=== PATIENT | male | born 1985 | race Caucasian/White ===

== ENCOUNTER 2016-08-31 12:21 | Emergency (ER) | payer OTHER ==
--- NOTE | 2016-08-31 12:57 | ED ---
General Adult HPI - General Chief complaint: Fever Stated complaint: fever Time Seen by Provider: 08/31/16 12:44 Source: patient Mode of arrival: ambulatory Limitations: no limitations - History of Present Illness Initial comments: This 30-year-old white male presents with the complaint of having a cough for the past 4 days as well as a fever for the past 2 days. He has had significant nasal congestion. He denies any production. He has had some diffuse myalgias. He has tried some antihistamine medication without relief. He also has tried some DayQuil. He does relate that he had a root canal done approximately 3 days ago and denies complications with this. He was on antibiotics this past week prior to the root canal but none recently. He has tried some Motrin at times. He states that his fever is up to 103 at worst. He complains of some fatigue. No other complaints or modifying factors. He was seen at an urgent care previously today and sent here for further evaluation. - Related Data Home Medications Medication Instructions Recorded Confirmed Dextroamphetamine/Amphetamine 15 - 30 mg PO DAILY 08/31/16 08/31/16 [Adderall] HYDROcodone/APAP 5-325MG [[place] 1 tab PO DAILY PRN 08/31/16 08/31/16 5-325] Ibuprofen [Motrin] 800 mg PO Q6H PRN 08/31/16 08/31/16 Previous Rx's Medication Instructions Recorded Albuterol Sulfate [Proair Hfa] 1 - 2 puff INHALATION Q6HR PRN #1 08/31/16 inhaler Amoxic-Pot Clav 875-125Mg 1 each PO Q12HR #20 tablet 08/31/16 [Augmentin Xr 875-125] Allergies Allergy/AdvReac Type Severity Reaction Status Date / Time No Known Allergies Allergy Verified 08/31/16 12:45 Review of Systems ROS Statement: Those systems with pertinent positive or pertinent negative responses have been documented in the HPI. ROS Other: All systems not noted in ROS Statement are negative. Past Medical History Past Medical History: No Reported History History of Any Multi-Drug Resistant Organisms: None Reported Additional Past Surgical History / Comment(s): right hand Past Psychological History: ADD/ADHD Smoking Status: Current some day smoker Past Alcohol Use History: Occasional Past Drug Use History: None Reported General Exam - General Exam Comments Initial Comments: GENERAL: The patient is well nourished and well hydrated. VITAL SIGNS: Heart rate, blood pressure, respiratory rate reviewed as recorded in nurse's notes. EYES: Pupils are round and reactive. Extraocular movements are intact. No conjunctival / lid redness or swelling. ENT: No external evidence of injury, swelling, or ecchymosis. Airway is patent. Throat is clear. There is moderate nasal congestion noted. There is some fluid behind the right eardrum. The left ear is occluded with wax. NECK: Nontender. No swelling or evidence of injury. No subcutaneous emphysema. Trachea is midline. No thyroid mass. HEART: Regular rate and rhythm. Good peripheral pulses. LUNGS/CHEST: Breath sounds clear and equal bilaterally. No rales, rhonchi, or wheezes. No ecchymosis, subcutaneous emphysema, or tenderness. ABDOMEN: Abdomen soft without tenderness. No palpable masses or organomegaly. No peritoneal signs. No abdominal wall swelling or ecchymosis. EXTREMITIES: No extremity tenderness. Normal muscle tone and function. No thoracolumbar tenderness. NEUROLOGIC: Sensation is grossly intact. Cranial nerve exam reveals face is symmetrical, tongue is midline, speech is clear. SKIN: No abrasions or ecchymosis is noted. No induration or masses noted. PSYCHIATRIC: Alert and oriented. Appropriate behavior and judgment. Limitations: no limitations Course Vital Signs 08/31/16 12:25 Temperature 97.9 F Pulse Rate 62 Respiratory 16 Rate Blood Pressure 124/84 O2 Sat by Pulse 99 Oximetry Medical Decision Making - Medical Decision Making The patient was seen and examined. Records from the urgent care were reviewed. A chest x-ray is ordered. This does not show any evidence of pneumonia or acute process. It is felt that he likely does have a degree of bronchitis as well as sinusitis and a slight right otitis media. He relates that he just stopped smoking 4 days ago but it is felt that he may benefit from an inhaler. He also will benefit from some antibiotics. He is instructed to stop the antihistamine and use either the DayQuil or Mucinex DM instead. He is instructed to utilize Tylenol and/or Motrin as needed for any fevers or myalgias. He understands and agrees and leaves in no distress. Disposition Clinical Impression: Fever, Sinusitis, Right otitis media, Cerumen impaction, Bronchitis Disposition: HOME SELF-CARE Condition: Good Instructions: Sinusitis (ED), Cerumen Impaction (ED), Fever in Adults (ED), Otitis Media (ED), Acute Bronchitis (ED) Additional Instructions: You also may take Tylenol if needed for any pain or fever. Please use Mucinex DM if needed for any cough or congestion. Prescriptions: Albuterol Sulfate [Proair Hfa] 1 - 2 puff INHALATION Q6HR PRN #1 inhaler PRN Reason: Shortness Of Breath Or Wheezing Amoxic-Pot Clav 875-125Mg [Augmentin Xr 875-125] 1 each PO Q12HR #20 tablet Referrals: None,Stated [Primary Care Provider] - 1-2 days Time of Disposition: 13:20
--- NOTE | 2016-08-31 13:19 | XR ---
EXAMINATION TYPE: XR chest 2V DATE OF EXAM: 08/31/2016 CLINICAL HISTORY: Cough TECHNIQUE: Frontal and lateral views of the chest are obtained. COMPARISON: 10/27/2015 FINDINGS: There is no focal air space opacity, pleural effusion, or pneumothorax seen. The cardiac silhouette size is within normal limits. The osseous structures are intact. IMPRESSION: No acute cardiopulmonary process.
[2016-08-31 13:34] VITALS: BP 119/71; PULSE 65; RESP 18; TEMP 98.3
== END 2016-08-31 13:33 | disposition home or self-care (01) ==
LOC: EC 12:21
DX: J40 Bronchitis, not specified as acute or chronic (principal); H66.91 Otitis media, unspecified, right ear; J32.9 Chronic sinusitis, unspecified; H61.22 Impacted cerumen, left ear; M79.1 Myalgia; F90.9 Attention-deficit hyperactivity disorder, unspecified type; F17.200 Nicotine dependence, unspecified, uncomplicated; Z79.899 Other long term (current) drug therapy
CPT/HCPCS: 71020; 99283

== ENCOUNTER 2019-02-20 00:44 | Emergency (ER) | payer OTHER ==
[2019-02-20 00:49] VITALS: BP 134/84; PULSE 98; RESP 18; TEMP 98.3
[2019-02-20] MEDS ORDERED: KETOROLAC 30 MG/ML 1 ML VIAL IM STA (00:54)
--- NOTE | 2019-02-20 01:10 | XR ---
EXAMINATION TYPE: XR ankle complete LT DATE OF EXAM: 02/20/2019 COMPARISON: NONE HISTORY: Pain TECHNIQUE: 3 views FINDINGS: Ankle mortise is anatomic. I see no fracture nor dislocation. Joint spaces are normal. IMPRESSION: Negative left ankle exam.
--- NOTE | 2019-02-20 01:11 | XR ---
EXAMINATION TYPE: XR foot complete LT DATE OF EXAM: 02/20/2019 COMPARISON: NONE HISTORY: Pain TECHNIQUE: 3 views FINDINGS: Metatarsals are intact. I see no fracture nor dislocation. Joint spaces are fairly normal. There is small calcification at the medial aspect of the IP joint of the big toe consistent with an o ld injury. IMPRESSION: No acute abnormality of the left foot.
[2019-02-20] MEDS ORDERED: ACET/COD 300 MG/30 MG STARTER PACK 6 TAB BTL PO STA (01:13)
--- NOTE | 2019-02-20 01:16 | ED ---
Lower Extremity Injury HPI - General Chief Complaint: Extremity Injury, Lower Stated Complaint: Fall-Ankle/Foot Injury Time Seen by Provider: 02/20/19 00:51 Source: patient Mode of arrival: ambulatory Limitations: no limitations - History of Present Illness Initial Comments: 33-year-old male patient presents to the emergency department today for evaluati on of left foot and ankle pain. Patient states his prior to arrival he was going on his back door when he tripped on an uneven pavement stone twisting the foot and ankle. Patient states the area immediately is became swollen. States he is having painful ambulation. Denies numbness or tingling to the leg or foot. He did not fall with this injury. He denies hitting her head or losing consciousness. Denies any other injuries. Patient denies any headache, neck pain, back pain, chest pain, shortness of breath, dizziness, weakness, abdominal pain, nausea, vomiting, or difficulties with bowel movements or urination. - Related Data Home Medications Medication Instructions Recorded Confirmed Dextroamphetamine/Amphetamine 15 - 30 mg PO DAILY 08/31/16 08/31/16 [Adderall] HYDROcodone/APAP 5-325MG [[place] 1 tab PO DAILY PRN 08/31/16 08/31/16 5-325] Ibuprofen [Motrin] 800 mg PO Q6H PRN 08/31/16 08/31/16 Previous Rx's Medication Instructions Recorded Albuterol Sulfate [Proair Hfa] 1 - 2 puff INHALATION Q6HR PRN #1 08/31/16 inhaler Amoxic-Pot Clav 875-125Mg 1 each PO Q12HR #20 tablet 08/31/16 [Augmentin Xr 875-125] Ibuprofen [Motrin] 600 mg PO Q8HR PRN #30 tab 02/20/19 Allergies Allergy/AdvReac Type Severity Reaction Status Date / Time No Known Allergies Allergy Verified 08/31/16 12:45 Review of Systems ROS Statement: Those systems with pertinent positive or pertinent negative responses have been documented in the HPI. ROS Other: All systems not noted in ROS Statement are negative. Past Medical History Past Medical History: No Reported History History of Any Multi-Drug Resistant Organisms: None Reported Additional Past Surgical History / Comment(s): right hand Past Psychological History: ADD/ADHD Smoking Status: Current some day smoker Past Alcohol Use History: Occasional Past Drug Use History: None Reported General Exam Limitations: no limitations General appearance: alert, in no apparent distress, other (This is a well- developed, well-nourished adult male patient in no acute distress. Vital signs upon presentation are temperature 98.3F, pulse 98, respirations 18, blood pressure 134/84, pulse ox 99% on room air.) Eye exam: Present: normal appearance, PERRL, EOMI. Absent: scleral icterus, conjunctival injection, periorbital swelling ENT exam: Present: normal exam, normal oropharynx, mucous membranes moist Respiratory exam: Present: normal lung sounds bilaterally. Absent: respiratory distress, wheezes, rales, rhonchi, stridor Cardiovascular Exam: Present: regular rate, normal rhythm, normal heart sounds. Absent: systolic murmur, diastolic murmur, rubs, gallop, clicks Extremities exam: Present: full ROM, tenderness (Tenderness over the dorsal aspect of the left foot), normal capillary refill, other (Soft tissue swelling noted to the dorsal aspect of the left foot. Skin is pink, warm, and dry. Cap refills of some 3 seconds. Pedal pulses are 2+ and equal bilaterally.). Absent: normal inspection, pedal edema, joint swelling, calf tenderness Neurological exam: Present: alert, oriented X3, CN II-XII intact Psychiatric exam: Present: normal affect, normal mood Skin exam: Present: warm, dry, intact, normal color. Absent: rash Course Vital Signs 02/20/19 00:45 Temperature 98.3 F Pulse Rate 98 Respiratory 18 Rate Blood Pressure 134/84 O2 Sat by Pulse 99 Oximetry Medical Decision Making - Medical Decision Making 33-year-old male patient presents to the emergency department today for evaluation of left foot pain and swelling. Physical examination did reveal soft tissue swelling and tenderness over the dorsal aspect of the left foot. X-rays of the foot and ankle were obtained and showed no acute fractures or evidence for dislocation. I did discuss findings and results with the patient. Symptoms are consistent with foot sprain. We did wrap the foot with an [place] wrap and given ankle stirrup splint. He'll be given up her prescription for crutches. He is instructed follow-up with food safety specialist for further evaluation if his symptoms do not improve over the next week. Return parameters were discussed in detail. He verbalizes understanding and agrees with this plan. - Radiology Data Radiology results: report reviewed, image reviewed Disposition Clinical Impression: Sprain of left foot Disposition: HOME SELF-CARE Condition: Good Instructions (If sedation given, give patient instructions): Foot Sprain (ED) Additional Instructions: Rest, ice, elevate the left foot. Wear [place] wrap for compression. Wear ankle splint for support. Take medication as directed for pain. Use crutches as needed for assistance with ambulating. Follow up with orthopedics for further evalua tion if pain symptoms persist beyond one week. Return to the emergency department immediately for any new, worsening, or concerning symptoms. Prescriptions: Ibuprofen [Motrin] 600 mg PO Q8HR PRN #30 tab PRN Reason: Pain Is patient prescribed a controlled substance at d/c from ED?: No Referrals: Jama Almeida MD [STAFF PHYSICIAN] - 1-2 days Time of Disposition: 01:15
== END 2019-02-20 01:31 | disposition home or self-care (01) ==
LOC: EC 00:44
DX: S93.602A Unspecified sprain of left foot, initial encounter (principal); F90.9 Attention-deficit hyperactivity disorder, unspecified type; F17.200 Nicotine dependence, unspecified, uncomplicated; Z79.899 Other long term (current) drug therapy; W18.49XA Other slipping, tripping and stumbling without falling, initial encounter; X50.1XXA Overexertion from prolonged static or awkward postures, initial encounter; Y92.480 Sidewalk as the place of occurrence of the external cause
CPT/HCPCS: 73610; 73630; 99283; 29515; 96372; J1885

== ENCOUNTER 2020-04-03 10:35 | Emergency (ER) | payer OTHER ==
[2020-04-03 10:43] VITALS: BP 133/82; PULSE 86; RESP 16; TEMP 97.6
[2020-04-03] MEDS ORDERED: DIAZEPAM 5 MG/ML 2 ML INJ IM ONE (10:55)
[2020-04-03] MEDS ORDERED: KETOROLAC 15 MG/ML 1 ML VIAL IM STA (10:55)
--- NOTE | 2020-04-03 10:58 | ED ---
General Adult HPI - General Chief complaint: Neck Pain/Injury Stated complaint: neck pain Time Seen by Provider: 04/03/20 10:40 Source: patient, family, RN notes reviewed, old records reviewed Mode of arrival: ambulatory Limitations: no limitations - History of Present Illness Initial comments: This is a 34-year-old male who presents emergency Department complaining of right-sided neck pain. Last couple days. Patient states last night got worse to the point where he had a sleep sitting up in the chair. Patient states any kind of movement with flexion or extension or bending his head to the left right seems to pull on the right trapezius muscle cause him a spasm. Patient denies any numbness or weakness patient denies any pain radiating down the arm. Patient denies any injury to the area. Patient denies any central neck pain. - Related Data Home Medications Medication Instructions Recorded Confirmed Ibuprofen [Motrin] 800 mg PO Q6H PRN 08/31/16 08/31/16 Dextroamphetamine/Amphetamine 20 mg PO DAILY 04/03/20 04/03/20 [Dextroamp-Amphetamin 20 mg Tab] Previous Rx's Medication Instructions Recorded Cyclobenzaprine [Flexeril] 10 mg PO TID #20 tab 04/03/20 Ketorolac [Toradol] 10 mg PO Q6HR #15 tab 04/03/20 Allergies Allergy/AdvReac Type Severity Reaction Status Date / Time No Known Allergies Allergy Verified 08/31/16 12:45 Review of Systems ROS Statement: Those systems with pertinent positive or pertinent negative responses have been documented in the HPI. ROS Other: All systems not noted in ROS Statement are negative. Past Medical History Past Medical History: No Reported History History of Any Multi-Drug Resistant Organisms: None Reported Additional Past Surgical History / Comment(s): right hand Past Psychological History: ADD/ADHD Smoking Status: Former smoker Past Alcohol Use History: None Reported Past Drug Use History: Marijuana General Exam - General Exam Comments Initial Comments: GENERAL: Patient is well-developed and well-nourished. Patient is nontoxic and well- hydrated and is in mild distress. ENT: Neck is soft and supple. Patient's reticulocyte patient also is mildly tender to palpation EYES: The sclera were anicteric and conjunctiva were pink and moist. Extraocular movements were intact and pupils were equal round and reactive to light. Eyelids were unremarkable. PULMONARY: Unlabored respirations. Good breath sounds bilaterally. No audible rales rhonchi or wheezing was noted. CARDIOVASCULAR: There is a regular rate and rhythm without any murmurs gallops or rubs. ABDOMEN: Soft and nontender with normal bowel sounds. SKIN: Skin is clear with no lesions or rashes and otherwise unremarkable. NEUROLOGIC: Patient is alert and oriented x3. Cranial nerves II through XII are grossly intact. Motor and sensory are also intact. Normal speech, volume and content. Symmetrical smile. MUSCULOSKELETAL: Normal extremities with adequate strength and full range of motion. No lower extremity swelling or edema. No calf tenderness. LYMPHATICS: No significant lymphadenopathy is noted PSYCHIATRIC: Normal psychiatric evaluation. Limitations: no limitations Course Vital Signs 04/03/20 10:41 Temperature 97.6 F Pulse Rate 86 Respiratory 16 Rate Blood Pressure 133/82 O2 Sat by Pulse 99 Oximetry Medical Decision Making - Medical Decision Making Patient received Valium and Toradol in the emergency department with only minimal improvement. Patient was 1 to go home and try some medications at home. Disposition Clinical Impression: Torticollis Disposition: HOME SELF-CARE Instructions (If sedation given, give patient instructions): Spasmodic Torticollis (ED) Prescriptions: Cyclobenzaprine [Flexeril] 10 mg PO TID #20 tab Ketorolac [Toradol] 10 mg PO Q6HR #15 tab Is patient prescribed a controlled substance at d/c from ED?: No Referrals: Anthony Rachel MD [Primary Care Provider] - 1-2 days Time of Disposition: 11:50
== END 2020-04-03 11:57 | disposition home or self-care (01) ==
LOC: EC 10:35
DX: M43.6 Torticollis (principal); F90.9 Attention-deficit hyperactivity disorder, unspecified type; Z79.899 Other long term (current) drug therapy; Z87.891 Personal history of nicotine dependence
CPT/HCPCS: 96372; 99283